=== PATIENT | male | born 1935 | race Caucasian/White ===

== ENCOUNTER 2021-03-30 10:58 | Emergency (ER) | payer MEDICARE, OTHER ==
[2021-03-30 14:37] VITALS: BP 162/82; PULSE 81
--- NOTE | 2021-03-30 14:53 | EDM.PDOC ---
<OfficerTej - Last Filed: 03/30/21 14:51> ED HPI GENERAL MEDICAL PROBLEM - General Chief Complaint: Gastrointestinal Problem Stated Complaint: CONSTIPATED Time Seen by Provider: 03/30/21 14:51 Source of Information: Reports: Patient, RN Notes Reviewed History Limitations: Reports: No Limitations - History of Present Illness INITIAL COMMENTS - FREE TEXT/NARRATIVE: 85-year-old gentleman presents emergency department day with complaint of constipation states he has been constipated for about a day has not been able to go to the bathroom today usually has a regular bowel movement daily. No fevers no nausea vomiting shortness of breath or chest pain - Related Data Allergies Allergy/AdvReac Type Severity Reaction Status Date / Time gluten Allergy Rash Verified 03/30/21 16:17 Home Meds: Home Meds Clopidogrel [Plavix] 75 mg PO DAILY 04/17/13 [History] Multivitamin with Minerals [Multiple Vitamin] 1 tab PO DAILY 04/17/13 [History] Pravastatin [Pravachol] 40 mg PO BEDTIME 04/17/13 [History] amLODIPine [Norvasc] 10 mg PO BEDTIME 04/17/13 [History] Metoprolol Tartrate 25 mg PO BID 03/30/21 [History] Rivaroxaban [Xarelto] 20 mg PO DAILY 03/30/21 [History] Past Medical History Cardiovascular History: Reports: High Cholesterol, Hypertension Social & Family History - Tobacco Use Tobacco Use Status *Q: Never Tobacco User ED ROS GENERAL - Review of Systems Review Of Systems: See Below Constitutional: Reports: No Symptoms Respiratory: Reports: No Symptoms Cardiovascular: Reports: No Symptoms GI/Abdominal: Reports: Abdominal Pain, Constipation ED EXAM, GI/ABD - Physical Exam Exam: See Below Exam Limited By: No Limitations General Appearance: Alert, WD/WN, No Apparent Distress Respiratory/Chest: No Respiratory Distress GI/Abdominal Exam: Soft, Non-Tender Departure - Departure Disposition: Home, Self-Care 01 Clinical Impression: Constipation, Hypertension - Discharge Information Instructions: Hypertension, Adult, [id number], Constipation, Adult, [id number] Referrals: Taylor Barron MD [Primary Care Provider] - Forms: ED Department Discharge Additional Instructions: You have been given a bottle of magnesium citrate tonight in the ER to help relieve your constipation for the "top" after your received 2-enemas here in the ER to help from the "bottom". It is further recommended that you follow the colonoscopy prep paperwork provided for complete bowel clearance--you will need to purchase items from local pharmacy/store & follow instructions on paperwork. If continued concerns follow up with your family physician on Sunday or next Sunday Please note you will have abdominal cramping/discomfort with these medications as they stimulate your bowels to move--if your pain becomes increasingly worse, you have vomiting that starts then return to the ER for further evaluation <Deanna Roy - Last Filed: 03/30/21 18:44> Course - Vital Signs Text/Narrative:: 03/30/2021--1800: report received from Dr Officer, ER at change of shift/transfer of care. Patient receiving enema x 2 (initial fleets no results, second soap suds). Plan is d/c with colonoscopy prep for bowel clearance. 1838--[employer]ICE PRESIDENT OF [employer]PLI[employer] states that no results from fleets, very little so far from soap suds but with limited retention time. will give bottle of mag citrate now and d/c with instructions for colonoscopy prep for this facility. Patient to follow up with PCM in 2-3 days if no results/continued concerns Last Recorded V/S: Last Vital Signs Temp 97.7 F 03/30/21 16:16 Pulse 81 03/30/21 16:16 Resp 16 03/30/21 16:16 BP 162/82 H 03/30/21 16:16 Pulse Ox 96 03/30/21 16:16 - Orders/Labs/Meds Orders: Active Orders 24 hr Category Date Time Status Enema [RC] ASDIRECTED Care 03/30/21 15:37 Active Abdomen 1V Upright [CR] Stat Exams 03/30/21 14:51 Taken Magnesium Citrate [Citrate of Magnesia] Med 03/30/21 18:36 Once 296 ml PO ONETIME ONE Departure - Departure Time of Disposition: 18:39 - Discharge Information *PRESCRIPTION DRUG MONITORING PROGRAM REVIEWED*: Not Applicable *COPY OF PRESCRIPTION DRUG MONITORING REPORT IN PATIENT AGUSTIN: Not Applicable Sepsis Event Note (ED) - Focused Exam Vital Signs: Vital Signs Temp Pulse Resp BP Pulse Ox 03/30/21 16:16 97.7 F 81 16 162/82 H 96 03/30/21 14:36 97.7 F 81 16 162/82 H 96 - My Orders Last 24 Hours: My Active Orders 03/30/21 18:36 Magnesium Citrate [Citrate of Magnesia] 296 ml PO ONETIME ONE - Assessment/Plan Last 24 Hours: My Active Orders 03/30/21 18:36 Magnesium Citrate [Citrate of Magnesia] 296 ml PO ONETIME ONE
[2021-03-30] MEDS ORDERED: Magnesium Citrate Solution 296 ML Bottle PO ONE (18:36)
--- NOTE | 2021-03-31 08:46 | CR ---
Abdomen 1V Upright CLINICAL HISTORY: Constipation FINDINGS: No free air is identified. The lung bases are hyperaerated. Small intestinal configuration is nonacute. There is significant fecal retention throughout particularly in the rectosigmoid colon which may represent fecal impaction IMPRESSION: Moderate fecal retention with possible fecal impaction
== END 2021-03-30 19:14 | disposition home or self-care (01) ==
LOC: JP.ED 10:58
DX: K59.00 Constipation, unspecified (principal); I10 Essential (primary) hypertension; E78.00 Pure hypercholesterolemia, unspecified; Z88.8 Allergy status to other drugs, medicaments and biological substances; Z79.02 Long term (current) use of antithrombotics/antiplatelets; Z79.899 Other long term (current) drug therapy
CPT/HCPCS: 74018; 99283; A9270